=== PATIENT | female | born 1950 | race Caucasian/White ===

== ENCOUNTER → 2020-04-12 17:10 | Outpatient (CLI) | payer MEDICARE, MEDICAID, SELFPAY ==
[2020-04-12 18:27] LABS: Hemoglobin A1C 7.3 % (4.0-6.0)
== END ==
PROVIDERS: Visit Provider Family Medicine
DX: E11.9 Type 2 diabetes mellitus without complications (principal)
CPT/HCPCS: 83036

== ENCOUNTER → 2021-08-16 11:52 | Outpatient (CLI) | payer MEDICARE, MEDICAID, SELFPAY ==
--- NOTE | 2021-08-16 11:55 | XR_ITS ---
PROCEDURE: XR KNEE LT 4V CLINICAL INDICATION: erosive osteoarthritis COMPARISON: No exams were available for comparison FINDINGS: No fracture or dislocation. No lytic or blastic change. There is normal mineralization. Minimal osteoarthritic change medial compartment and patellofemoral joint. Other findings:Increased soft tissue density in the suprapatellar region suggesting knee joint effusion. IMPRESSION: Mild osteoarthritic change with possible small knee joint effusion Dictated by: Navneet Alvarado MD 08/16/2021 13:19 Navneet Alvarado MD in [place] 08/16/2021 13:19
--- NOTE | 2021-08-16 11:57 | XR_ITS ---
PROCEDURE: XR KNEE RT 4V CLINICAL INDICATION: erosive osteoarthritis COMPARISON: No exams were available for comparison FINDINGS: No fracture or dislocation. No lytic or blastic change. There is normal mineralization. There are mild osteoarthritic changes involving the medial and lateral compartment and to lesser degree at the patellofemoral joint. There is mild/4 mm lateral translation of the tibia. Other findings:None. IMPRESSION: Mild osteoarthritic change. No bony destructive process apparent Dictated by: Navneet Alvarado MD 08/16/2021 12:58 Navneet Alvarado MD in [place] 08/16/2021 12:58
== END ==
PROVIDERS: PCP Family Medicine; Visit Provider Family Medicine
DX: M15.4 Erosive (osteo)arthritis (principal); M25.562 Pain in left knee; M25.561 Pain in right knee
CPT/HCPCS: 73564